=== PATIENT | female | born 1995 | race Hispanic/Latino ===

== ENCOUNTER 2022-11-27 11:52 | Outpatient (CLI) | payer OTHER | END 2022-11-27 11:53 | disposition home or self-care (01) | LOC: ULT 11:52 | PROVIDERS: ATTEND Family Medicine | DX: R19.8 Other specified symptoms and signs involving the digestive system and abdomen (principal) | CPT/HCPCS: 76999 ==

== ENCOUNTER 2023-01-02 09:39 | Outpatient (CLI) | payer OTHER | END 2023-01-02 09:40 | disposition home or self-care (01) | LOC: ULT 09:39 | PROVIDERS: ATTEND Family Medicine | DX: R79.89 Other specified abnormal findings of blood chemistry (principal) | CPT/HCPCS: 76705 ==